=== PATIENT | male | born 1990 | race Two or more races ===

== ENCOUNTER 2023-05-11 07:52 | Emergency (ER) | payer OTHER ==
[2023-05-11 07:59] VITALS: RESP 20; BMI 33.4
[2023-05-11] MEDS ORDERED: ACETAMINOPHEN 325 MG TABLET (FP) ONE (08:31)
[2023-05-11] MEDS ORDERED: IBUPROFEN 400 MG TABLET (FP) PO ONE (08:32)
[2023-05-11] MEDS: ACETAMINOPHEN 325 MG TABLET (FP) PO ONE (08:34)
[2023-05-11] MEDS: IBUPROFEN 400 MG TABLET (FP) PO ONE (08:34)
[2023-05-11 08:36] LABS: BASO % 1.2 % (0-2.0); EOS % 1.7 % (0-4.5); HEMOGLOBIN 16.4 GM/dL (11.7-16.9); LYMPH % 20.5 % (8-40); MCH 29.4 pg (25.7-33.7); MCHC 34.1 g/dl (32.0-35.9); MEAN CELL VOLUME 86.4 fl (80-96); MEAN PLT VOLUME 8.6 fl (7.5-11.1); NEUT % 68.6 % (42.8-82.8); PLATELET COUNT 241 10^3/uL (134-434); RBC 5.56 M/mm3 (4.00-5.60)
[2023-05-11 08:40] LABS: INR 0.97 (0.83-1.09); PROTHROMBIN TIME (PATIENT) 11.2 SEC (9.7-13.0)
[2023-05-11 08:42] LABS: ACTIVATED PTT 25.9 SECONDS (25.2-36.5)
[2023-05-11 09:03] LABS: POTASSIUM 4.7 mmol/L (3.5-5.1)
[2023-05-11 09:04] LABS: CALCIUM 9.3 mg/dL (8.5-10.1)
[2023-05-11 09:05] LABS: ALBUMIN 3.6 g/dl (3.4-5.0); BLOOD UREA NITROGEN 14.1 mg/dL (7-18)
[2023-05-11 09:08] LABS: CREATININE 0.9 mg/dL (0.55-1.3)
[2023-05-11 09:10] LABS: BILIRUBIN,TOTAL 0.4 mg/dL (0.2-1); TOT PROT 7.4 g/dl (6.4-8.2)
[2023-05-11 12:00] VITALS: BP 123/77; PULSE 66; TEMP 98.2
== END 2023-05-11 12:00 | disposition home or self-care (01) ==
LOC: JER 07:52
DX: R07.89 Other chest pain (principal); Z20.822 Contact with and (suspected) exposure to COVID-19
CPT/HCPCS: 0241U-QW; 36415; 71046-TC-FY; 80053; 84484; 85025; 85610; 85730; 93005; 93010; 99285-25